=== PATIENT | male | born 1980 | race Caucasian/White ===

== ENCOUNTER 2017-12-26 16:21 | Emergency (ER) | payer OTHER ==
[~2017-12-26] VITALS: Ht 185.4 cm; Wt 127.0 kg
[~2017-12-26 16:21] MED LIST: FLOMAX PO; LISINOPRIL10 MG PO; NOHOMEMEDICATIONS; PERCOCET 5-3251 EACH PO; ZOFRAN ODT4 MG PO
[2017-12-26] MEDS ORDERED: AUGMENTIN 875-1 EACH PO (17:03)
[2017-12-26] MEDS ORDERED: FLONASE 0.05%50 MCG NASAL (17:03)
[2017-12-26 17:12] VITALS: BP 137/93
== END 2017-12-26 17:13 | disposition home or self-care (01) ==
LOC: M.ERS 16:21
DX: J01.90 Acute sinusitis, unspecified (principal); R42 Dizziness and giddiness; I10 Essential (primary) hypertension; Z87.442 Personal history of urinary calculi